=== PATIENT | male | born 1950 | race Caucasian/White ===

== ENCOUNTER 2018-11-04 20:56 | Inpatient (IN) | payer OTHER ==
[~2018-11-04] VITALS: Ht 188 cm; Wt 132.6 kg
--- NOTE | ~2018-11-04 | EKG ---
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
--- NOTE | ~2018-11-04 | EKG ---
[address] [address] ELECTROCARDIOGRAM REPORT Name: MILTON CROUCH Room #: 201-P ADM IN M.R.#: [id number] Admission: 11/04/18 Attend Phys: Niraj Leavitt MD Discharge: Date of : 50 Report #: [id number] THIS REPORT FOR: //name// 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 : 1950 Requested By: Sukhwinder Lazo Order Number: [id number] MD: Thiago Luna Measurements Intervals [place] Rate: 110 P: 19 CA: 142 QRS: 40 QRSD: 88 T: 19 QT: 336 QTc: 455 Interpretive Statements Sinus tachycardia with PACs Consider right atrial enlargement Borderline ST elevation, anterior leads Baseline wander in lead(s) III,V4,V5,V6 No previous ECG available for comparison Electronically Signed On 11-06-2018 20:29:51 SHOE CLERK by Thiago Luna [email or web address] <ELECTRONICALLY SIGNED> By: Thiago Luna MD 11/06/189 0154 0154 Thiago Luna MD /EPI
--- NOTE | ~2018-11-04 | EKG ---
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
--- NOTE | ~2018-11-04 | EKG ---
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
--- NOTE | ~2018-11-04 | EKG ---
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
--- NOTE | ~2018-11-04 | 2DMMODE ---
[facility] [address] [address] 2 D/M-MODE ECHOCARDIOGRAM Name: MILTON CROUCH Room #: 201-P [facility] IN ..#: [id number] Admission: 11/04/18 Attend Phys: Niraj Leavitt MD Discharge: Date of : 50 Date of Service: 11/06/18 0926 Report #: [id number] THIS REPORT FOR: //name// APPROVED REPORT Study performed: 11/05/2018 11:04:33 EXAM: Comprehensive 2D, Doppler, and color-flow Echocardiogram Patient Location: In-Patient Room #: 201 BSA: 2.56 HR: 83 bpm BP: 90/59 mmHg Other Information Study Quality: Adequate Technically limited study due to body habitus, shortness of breath, patient motion. Risk Factors: Cardiac Risk Factors: HTN, Obesity Echo Enhancing Agent Indication: Pulmonary emboli 2D Dimensions RVDd: 37.66 mm IVSd: 13.95 (7-11mm) LVOT Diam: 23.34 (18-24mm) LVDd: 38.47 mm PWd: 13.31 (7-11mm) Ascending Ao: 33.92 (22-36mm) LVDs: 19.48 (25-40mm) Left Atrium: 40.74 (27-40mm) Aortic Root: 32.16 mm LV Single Plane 4CH: 51.56 % LV Single Plane 2CH: 60.72 % Volumes Left Atrial Volume (Systole) Single Plane 4CH: 44.49 mL Single Plane 2CH: 29.71 mL Aortic Valve AoV Peak Enmanuel.: 1.60 m/s AO Peak Gr.: 10.22 mmHg AO Mean Gr.: 4.91 mmHg [facility] [address] [place] [address] 2 D/M-MODE ECHOCARDIOGRAM Name: MILTON CROUCH Room #: 201-P [facility] IN [facility].#: [id number] Admission: 11/04/18 Attend Phys: Niraj Leavitt MD Discharge: Date of : 50 Date of Service: 11/06/18 0926 Report #: [id number] V2 Mean: 1.03 m/s AO V2 VTI: 22.05 cm Mitral Valve E/A Ratio: 0.7 MV Decel. Time: 277.21 ms MV E Max Enmanuel.: 0.61 m/s MV A Enmanuel.: 0.90 m/s MV PHT: 80.39 ms IVRT: 89.97 ms Pulmonary Vein P Vein S: 0.46 m/s P Vein A: 0.34 m/s P Vein D: 0.24 m/s P Vein A Dur.: 103.8 msec P Vein S/D Ratio: 1.92 Tricuspid Valve TR Peak Enmanuel.: 3.64 m/s TR Peak Gr.: 52.88 mmHg Left Ventricle The left ventricle is normal size. Moderate concentric left ventricular hypertrophy. mild septal flattening Left ventricular systolic function is normal. LVEF is 50-55%. Right Ventricle Right ventricle is dilated. Right ventricle is mildly hypokinetic. Atria The left atrium size is normal. Right atrium is dilated. Aortic Valve Mild aortic valve sclerosis with normal excursion. Trace aortic regurgitation. There is no aortic valvular stenosis. Mitral Valve The mitral valve is normal in structure. Trace mitral regurgitation. No evidence of mitral valve stenosis. Tricuspid Valve The tricuspid valve is normal in structure. Moderate tricuspid regurgitation. Severly increased PAP of approximately 68 mmHg. Pulmonic Valve [facility] [address] [place] [address] 2 D/M-MODE ECHOCARDIOGRAM Name: MILTON CROUCH Room #: 201-P [facility] IN ..#: [id number] Admission: 11/04/18 Attend Phys: Niraj Leavitt MD Discharge: Date of : 50 Date of Service: 11/06/18 0926 Report #: [id number] The pulmonary valve is normal in structure. Trace to mild pulmonic regurgitation. Great Vessels The inferior vena cava is mildly dilated with no inspiratory collapse. Pericardium There is no pericardial effusion. <Conclusion> The left ventricle is normal size. Moderate concentric left ventricular hypertrophy. LVEF is 50-55%. mild septal flattening Right ventricle is dilated. Right ventricle is mildly hypokinetic. Right atrium is dilated. Mild aortic valve sclerosis with normal excursion. Trace aortic regurgitation. Trace mitral regurgitation. Moderate tricuspid regurgitation. Severly increased PAP of approximately 68 mmHg. There is no pericardial effusion. <ELECTRONICALLY SIGNED> By: Sukhwinder Lazo MD, FACC 11/06/18925 5 5 Sukhwinder Lazo MD, FACC /INF
[2018-11-04 23:27] VITALS: BP 143/86
[2018-11-05] VITALS (7 sets, daily range): BP systolic 99–154; BP diastolic 59–88
[2018-11-05] MEDS ORDERED: FINASTERIDE5 MG PO (05:12)
[2018-11-05] MEDS ORDERED: NEURONTIN 400400 M1 PO (05:13)
[2018-11-05] MEDS ORDERED: METFORMIN HCL500 MG PO (05:19)
[2018-11-05] MEDS ORDERED: LISINOPRIL10 MG PO (05:22)
[2018-11-05] MEDS ORDERED: PIOGLITAZONE15 MG PO (05:26)
[2018-11-05] MEDS ORDERED: ASPIR 8181 MG PO (05:28)
[2018-11-05] MEDS ORDERED: FLEXERIL PO (05:29)
[2018-11-05 07:02] LABS: HEMATOCRIT 34.2 % (42.0-52.0); HEMOGLOBIN 11.7 gm/dL (14.0-18.0); MCH 30.6 pg (26.0-34.0); MCHC 34.2 g/dL (28.0-37.0); MCV 89.5 fL (80.0-100.0); RBC 3.82 mil/uL (4.50-6.00); RDW 14.3 % (10.5-14.5); WBC 11.5 thou/uL (4.0-11.0)
[2018-11-05 07:43] LABS: CHOLESTEROL 185 mg/dL (<200); HDL CHOLESTEROL 47 mg/dL (>40); LDL CHOLESTEROL 115 mg/dL (<100); TC:HDL 3.9 Ratio (Not establshd); TRIGLYCERIDE 116 mg/dL (<150); VLDL 23 mg/dL (<40)
[2018-11-05 08:16] LABS: BE(vivo) -4.7 mmol/L (-2 to +3); HCO3 18.2 mmol/L (22.0-26.0); PCO2 27.7 mmHg (35.0-45.0); PO2 66.4 mmHg (80.0-100.0); pH 7.436 (7.360-7.450); sO2 94.1 % (92.0-98.0)
[2018-11-05 08:28] LABS: CALCIUM 8.4 mg/dL (8.5-10.1); CREATININE 1.4 mg/dL (0.7-1.3); POTASSIUM 4.9 mmol/L (3.5-5.1)
[2018-11-05 10:05] LABS: HEMOGLOBIN 11.9 gm/dL (14.0-18.0); MCH 30.5 pg (26.0-34.0); MCV 89.8 fL (80.0-100.0); RBC 3.9 mil/uL (4.50-6.00); RDW 14.1 % (10.5-14.5); WBC 10.8 thou/uL (4.0-11.0)
[2018-11-05 10:18] LABS: ALBUMIN 3.1 g/dL (3.4-5.0); CALCIUM 8.1 mg/dL (8.5-10.1); CREATININE 1.5 mg/dL (0.7-1.3); INR 1.1; POTASSIUM 4.2 mmol/L (3.5-5.1); PROTIME 11.4 Seconds (9.3-11.4); TOTAL BILIRUBIN 0.5 mg/dL (<0.1-1.0); TOTAL PROTEIN 6.4 g/dL (6.4-8.2)
[2018-11-06 00:05] LABS: GLYCOHEMOGLOBIN (HGB A1C) 8.2 % (4.8-5.6)
[2018-11-06 04:12] LABS: BE(vivo) -0.8 mmol/L (-2 to +3); HCO3 22.2 mmol/L (22.0-26.0); PCO2 31.5 mmHg (35.0-45.0); PO2 83.1 mmHg (80.0-100.0); pH 7.465 (7.360-7.450); sO2 96.8 % (92.0-98.0)
[2018-11-06 04:28] VITALS: BP 149/90
[2018-11-06 05:41] LABS: ABSOLUTE NEUTROPHILS 6.5 thou/uL (1.4-8.2); BASOPHILS 0.2 % (0.0-2.0); EOSINOPHILS 0.3 % (0.0-3.0); HEMATOCRIT 34.3 % (42.0-52.0); HEMOGLOBIN 11.6 gm/dL (14.0-18.0); LYMPHOCYTES 24.9 % (24.0-44.0); MCH 30.7 pg (26.0-34.0); MCHC 33.7 g/dL (28.0-37.0); MONOCYTES 9.2 % (1.0-8.0); PLATELET COUNT 148 thou/uL (150-400); POLYS 65.4 % (36.0-66.0); RBC 3.77 mil/uL (4.50-6.00); RDW 14.4 % (10.5-14.5); WBC 9.9 thou/uL (4.0-11.0)
[2018-11-06 05:56] LABS: ALBUMIN 3.1 g/dL (3.4-5.0); CALCIUM 8.4 mg/dL (8.5-10.1); CREATININE 1.2 mg/dL (0.7-1.3); MAGNESIUM 1.6 mg/dL (1.8-2.4); POTASSIUM 3.6 mmol/L (3.5-5.1); TOTAL BILIRUBIN 0.4 mg/dL (<0.1-1.0); TOTAL PROTEIN 6.3 g/dL (6.4-8.2); TROPONIN-I 0.14 ng/mL (<0.06)
[2018-11-06 07:21] VITALS: BP 144/75
[2018-11-06 11:25] VITALS: BP 136/64
[2018-11-06 11:27] VITALS: BP 127/71
[2018-11-06 13:06] VITALS: BP 116/86
[2018-11-06 19:33] VITALS: BP 132/89
[2018-11-07 04:22] VITALS: BP 119/69
[2018-11-07 08:02] LABS: CALCIUM 8.2 mg/dL (8.5-10.1); CREATININE 1.2 mg/dL (0.7-1.3); POTASSIUM 3.9 mmol/L (3.5-5.1)
[2018-11-07 11:21] VITALS: BP 121/81
[2018-11-07 15:35] VITALS: BP 129/76
[2018-11-07 19:10] VITALS: BP 133/89
[2018-11-08 04:15] VITALS: BP 150/94
[2018-11-08 05:35] LABS: HEMATOCRIT 31.9 % (42.0-52.0); HEMOGLOBIN 10.6 gm/dL (14.0-18.0); MCH 30.4 pg (26.0-34.0); MCHC 33.3 g/dL (28.0-37.0); MCV 91.3 fL (80.0-100.0); RBC 3.49 mil/uL (4.50-6.00); RDW 14.3 % (10.5-14.5); WBC 7.5 thou/uL (4.0-11.0)
[2018-11-08 07:00] VITALS: BP 160/90
[2018-11-08 10:55] VITALS: BP 145/70
[2018-11-08 15:15] VITALS: BP 145/85
[2018-11-08 19:59] VITALS: BP 146/76
[2018-11-09 06:16] VITALS: BP 132/60
[2018-11-09 07:23] VITALS: BP 117/78
[2018-11-09] MEDS ORDERED: ATORVASTATIN CA40 MG PO (10:21)
[2018-11-09] MEDS ORDERED: ELIQUIS5 MG PO (10:21)
[2018-11-09] MEDS ORDERED: METOPROLOL SUCC50 MG PO (10:22)
[2018-11-09 10:42] VITALS: BP 117/78
[2018-11-09 10:45] VITALS: BP 117/78
[2018-11-09 11:00] VITALS: BP 139/87
== END 2018-11-09 12:05 | disposition home or self-care (01) | DRG 871 ==
LOC: 2N 20:56 → ENTRNSPT 11-09 11:50 → EDTRNSPTSTS 11-09 11:52 → 2N 11-09 12:05
PROVIDERS: Internal Medicine; Nurse Practitioner Adult Health; Nurse Practitioner Family
DX: A41.9 Sepsis, unspecified organism (principal); I26.99 Other pulmonary embolism without acute cor pulmonale; J18.9 Pneumonia, unspecified organism; J96.01 Acute respiratory failure with hypoxia; I21.4 Non-ST elevation (NSTEMI) myocardial infarction; E46 Unspecified protein-calorie malnutrition; M54.5 Low back pain; E83.42 Hypomagnesemia; E11.40 Type 2 diabetes mellitus with diabetic neuropathy, unspecified; I10 Essential (primary) hypertension; G89.29 Other chronic pain; N40.0 Benign prostatic hyperplasia without lower urinary tract symptoms; M54.2 Cervicalgia; Z68.37 Body mass index [BMI] 37.0-37.9, adult; Z79.82 Long term (current) use of aspirin; Z79.84 Long term (current) use of oral hypoglycemic drugs; Z79.899 Other long term (current) drug therapy; Z88.0 Allergy status to penicillin; Z82.49 Family history of ischemic heart disease and other diseases of the circulatory system; Z83.3 Family history of diabetes mellitus
CPT/HCPCS: 10081